=== PATIENT | female | born 1955 | race Two or more races ===

== ENCOUNTER 2018-03-30 20:55 | Emergency (ER) | payer OTHER ==
[2018-03-30 21:01] VITALS: BMI 26.9
--- NOTE | 2018-03-30 21:09 | PDOC ---
Attending Attestation - HPI HPI: 03/30/18 23:02 The patient is a 62 year old female, with a significant past medical history of arthritis, hypothyroidism, headaches, and diverticulitis, who presents to the emergency department s/p 10 minute episode of non-radiating chest pain with associated dizziness and nausea after taking Zolmitriptan which has since resolved. She denies recent dysuria, frequency, urgency or hematuria. Allergies: NKDA Primary Care Physician: Dr. Keating - Physicial Exam PE: 03/30/18 23:02 GENERAL: Awake, alert, and fully oriented, in no acute distress HEAD: No signs of trauma EYES: PERRLA, EOMI, sclera anicteric, conjunctiva clear ENT: Auricles normal inspection, hearing grossly normal, nares patent, oropharynx clear without exudates. Moist mucosa NECK: Normal ROM, supple, no lymphadenopathy, JVD, or masses LUNGS: Breath sounds equal, clear to auscultation bilaterally. No wheezes, and no crackles HEART: Regular rate and rhythm, normal S1 and S2, no murmurs, rubs or gallops ABDOMEN: Soft, nontender, normoactive bowel sounds. No guarding, no rebound. No masses EXTREMITIES: Normal range of motion, no edema. No clubbing or cyanosis. No cords, erythema, or tenderness NEUROLOGICAL: Cranial nerves II through XII grossly intact. Normal speech, normal gait SKIN: Warm, Dry, normal turgor, no rashes or lesions noted. <Cj Franklin - Last Filed: 03/30/18 23:01> - Resident Resident Name: Inessa Mathew - ED Attending Attestation I have performed the following: I have examined & evaluated the patient, The case was reviewed & discussed with the resident, I agree w/resident's findings & plan - Medical Decision Making 03/31/18 00:20 Pt has normal labs; she has normal EKG; she is refusing CXR at this time, because she will be getting one at her docotr's office. Her TSH is okay. Pt will be given a copy of her labs and she will be discharged. Impression: Atypical chest pain. <Zeina Coronel - Last Filed: 03/31/18 00:21> Attestations - Attestations 03/30/18 23:02 Documentation prepared by Cj Franklin, acting as medical imaging technician for Zeina Coronel MD. <Cj Franklin - Last Filed: 03/30/18 23:01>
--- NOTE | 2018-03-30 21:12 | PDOC ---
History of Present Illness - General Chief Complaint: Chest Pain Stated Complaint: CHEST PAIN Time Seen by Provider: 03/30/18 21:08 - History of Present Illness Initial Comments: 03/30/18 21:11 62 year old woman with a history of rheumatoid arthritis, hypothyroidism, temporal headaches and previous admission for diverticulitis who presents with 10 min episode of dizziness, nausea, and central non radiating chest tightness that occurred after taking zolmitriptan for the first time on an empty stomache. The patient notes that her daughter had influenza 2 weeks ago and she has been feeling somewhat weak for the past week. She denies any current chest pain, nausea, dizziness, shortness of breath, abdominal pain, vomiting, diarrhea , constipation, dysuria, hematuria. She denies any diaphoresis at time of the episode, denies recent travel, denies loss of consciousness. The patient has no other complaints at bedside. Past History - Past Medical History Allergies/Adverse Reactions: Allergies Allergy/AdvReac Type Severity Reaction Status Date / Time No Known Allergies Allergy Verified 05/11/17 21:42 Home Medications: Ambulatory Orders Levothyroxine [Synthroid -] 88 mcg PO DAILY 05/11/17 COPD: No GI Disorders: Yes (diverticulitis) Thyroid Disease: Yes (hypo) - Surgical History Abdominal Surgery: No (colon resection) GI Surgery: Yes (DIVERTICULITIS) - Immunization History Immunization Up to Date: Yes - Suicide/Smoking/Psychosocial Hx Smoking History: Never smoked Have you smoked in the past 12 months: No Number of Cigarettes Smoked Daily: 0 Cigars Per Day: 0 Information on smoking cessation initiated: No Hx Alcohol Use: No Drug/Substance Use Hx: No Review of Systems - Review of Systems Able to Perform ROS?: Yes Is the patient limited E[place] proficient: No Constitutional: No: Chills, Diaphoresis, Fever *Physical Exam - Vital Signs Last Vital Signs Temp Pulse Resp BP Pulse Ox 97.3 F L 86 20 162/78 100 03/30/18 20:59 03/30/18 20:59 03/30/18 20:59 03/30/18 20:59 03/30/18 20:59 - Physical Exam Comments: 03/30/18 21:30 GENERAL: Awake, alert, and fully oriented, in no acute distress HEAD: No signs of trauma, normocephalic, atraumatic EYES: PERRLA, EOMI, sclera anicteric, conjunctiva clear ENT: oropharynx clear without exudates. Moist mucosa NECK: Normal ROM, supple LUNGS: No distress, speaks full sentences, clear to auscultation bilaterally HEART: Regular rate and rhythm, normal S1 and S2, no murmurs, rubs or gallops, peripheral pulses normal and equal bilaterally. ABDOMEN: Soft, nontender, normoactive bowel sounds. No guarding, no rebound. No masses EXTREMITIES : Normal inspection, Normal range of motion, no edema. No clubbing or cyanosis. NEUROLOGICAL: Cranial nerves II through XII grossly intact. Normal speech, no focal sensorimotor deficits SKIN: Warm, Dry, normal turgor, no rashes or lesions noted Moderate Sedation - Procedure Monitoring Vital Signs: Procedure Monitoring Vital Signs Temperature 97.3 F L 03/30/18 20:59 Pulse Rate 86 03/30/18 20:59 Respiratory Rate 20 03/30/18 20:59 Blood Pressure 162/78 03/30/18 20:59 O2 Sat by Pulse Oximetry (%) 100 03/30/18 20:59 ED Treatment Course - LABORATORY CBC & Chemistry Diagram: 03/30/18 22:47 03/30/18 23:25 Medical Decision Making - Medical Decision Making 03/30/18 21:29 62 year old woman with a history of rheumatoid arthritis, hypothyroidism, headaches and previous admission for diverticulitis who presents with 10 min episode of dizziness, nausea, and central non radiating chest tightness that occurred after taking zolmitriptan on an empty stomach. The patient notes that her daughter had influenza 2 weeks ago and she has been feeling somewhat weak for the past week. She denies any current chest pain, nausea, dizziness, shortness of breath, abdominal pain, vomiting, diarrhea, constipation, dysuria, hematuria. ED Course: r/o acs vs arrythmia likely patient with new medication reaction patient's history inconsistent with ACS cbc, cmp, t ekg 03/30/18 22:34 EKG w/o concerning *DC/Admit/Observation/Transfer Diagnosis at time of Disposition: Atypical chest pain - Discharge Dispostion Disposition: HOME Condition at time of disposition: Stable Decision to Admit order: No - Referrals Referrals: Chino Keating [Primary Care Provider] - - Patient Instructions Printed Discharge Instructions: DI for Atypical Chest Pain Additional Instructions: You were seen in the ED for complaints of a short episode of chest pain and dizziness. In the ED you were evaluated with labwork, but did not desire imaging at this time. Your results were unremarkable aside from a slightly elevated TSH thyroid level. There does not appear to be an acute need for immediate hospitalization. You are advised to follow up with your Primary Care Physician within 1 week. Please refrain from taking your Zolmitriptan until you can be seen by your Primary Care Physician. Return to the ED immediately if you experience worsening chest pain, sweating, nausea, shortness of breath, loss of consciousness or palpitations and lightheadedness. - Post Discharge Activity
[2018-03-30] MEDS ORDERED: SODIUM CHLORIDE 1,000 ML IV SCH (21:30)
[2018-03-30 23:03] LABS: BASO % 1.3 % (0-2.0); EOS % 4.5 % (0-4.5); HEMATOCRIT 39.1 % (32.4-45.2); HEMOGLOBIN 13.7 GM/dL (10.7-15.3); LYMPH % 30.4 % (8-40); MCHC 35.1 g/dl (32.0-36.0); MEAN CELL VOLUME 93.8 fl (80-96); NEUT % 55.8 % (42.8-82.8); PLATELET COUNT 197 K/MM3 (134-434); RBC 4.17 M/mm3 (3.60-5.2); RDW 14.3 % (11.6-15.6); WHITE BLOOD COUNT 6.1 K/mm3 (4.0-10.0)
[2018-03-31 00:03] LABS: ALBUMIN 4.2 g/dl (3.4-5.0); ALK PHOS 122 U/L (45-117); ANION GAP 7 MMOL/L (8-16); BILIRUBIN,TOTAL 0.4 mg/dL (0.2-1); BLOOD UREA NITROGEN 11 mg/dL (7-18); CHLORIDE 106 mmol/L (98-107); CO2 28 mmol/L (21-32); CREATININE 0.9 mg/dL (0.55-1.3); GLUCOSE,RANDOM 126 mg/dL (74-106); POTASSIUM 3.8 mmol/L (3.5-5.1); SGOT/AST 26 U/L (15-37); SGPT/ALT 42 U/L (13-61); SODIUM 141 mmol/L (136-145); TOT PROT 7.8 g/dl (6.4-8.2)
[2018-03-31 00:56] VITALS: BP 122/76; PULSE 82; TEMP 97.9
--- NOTE | 2018-03-31 15:38 | EKG ---
Test Reason : Blood Pressure : / mmHG Vent. Rate : 089 BPM Atrial Rate : 089 BPM P-R Int : 164 ms QRS Dur : 086 ms QT Int : 362 ms P-R-T Axes : 069 029 038 degrees QTc Int : 440 ms NORMAL SINUS RHYTHM POSSIBLE LEFT ATRIAL ENLARGEMENT BORDERLINE ECG WHEN COMPARED WITH ECG OF 11-MAY-2017 21:52, PREVIOUS ECG HAS UNDETERMINED RHYTHM, NEEDS REVIEW Confirmed by SHAHAB MORENO MD ([id number]) on 03/31/2018 3:37:53 PM Referred By: Confirmed By:SHAHAB MORENO MD
== END 2018-03-31 00:55 | disposition home or self-care (01) ==
LOC: JER 20:55
DX: R07.89 Other chest pain (principal); E03.9 Hypothyroidism, unspecified; M06.9 Rheumatoid arthritis, unspecified; K57.92 Diverticulitis of intestine, part unspecified, without perforation or abscess without bleeding; R51 Headache
CPT/HCPCS: 36415; 80053; 84443; 85025; 87804; 93005; 93010; 99282-25

== ENCOUNTER 2022-09-25 21:01 | Observation (INO) | payer OTHER, MEDICARE ==
[2022-09-25 21:13] VITALS: BMI 24.0
[2022-09-25] MEDS ORDERED: SODIUM CHLORIDE IV ONE (23:03)
[2022-09-25] MEDS ORDERED: CEFTRIAXONE 1 GM in DEXTROSE 5%-WATER - 100 ML IVPB ONE (23:23)
[2022-09-25] MEDS ORDERED: ACETAMINOPHEN 1000 MG/100 ML BAG IVPB ONE (23:24)
[2022-09-25] MEDS ORDERED: ACETAMINOPHEN INJECTION 100 ML IVPB ONE (23:36)
[2022-09-25] MEDS ORDERED: CEFTRIAXONE 1 GM/50 ML BAG ONE (23:36)
[2022-09-25 23:45] LABS: BASO % 0.4 % (0-2.0); EOS % 1.6 % (0-4.5); HEMATOCRIT 37.1 % (32.4-45.2); HEMOGLOBIN 12.7 GM/dL (10.7-15.3); LYMPH % 3.5 % (8-40); MCH 31.3 pg (25.7-33.7); MCHC 34.3 g/dl (32.0-36.0); MEAN CELL VOLUME 91.2 fl (80-96); MEAN PLT VOLUME 9.3 fl (7.5-11.1); NEUT % 90.5 % (42.8-82.8); PLATELET COUNT 175 10^3/uL (134-434); RBC 4.07 M/mm3 (3.60-5.2); RDW 14.1 % (11.6-15.6); WHITE BLOOD COUNT 10.4 K/mm3 (4.0-10.0)
[2022-09-25 23:48] LABS: EPI CELLS 13 /uL (0-25.1); HYALINE CASTS 0 /uL (0-3.1); URINE APPEARANCE CLEAR; URINE BACTERIA 24 /uL (0-1359); URINE BILIRUBIN NEGATIVE (NEGATIVE); URINE COLOR YELLOW; URINE GLUCOSE (UA) NEGATIVE (NEGATIVE); URINE KETONE NEGATIVE (NEGATIVE); URINE LEUK ESTERASE TRACE (NEGATIVE); URINE NITRITE NEGATIVE (NEGATIVE); URINE PROTEIN NEGATIVE (NEGATIVE); URINE RBC 7 /uL (0-23.9); URINE UROBILINOGEN 0.2 mg/dL (0.2-1.0); URINE WBC 13 /uL (0-25.8)
[2022-09-25 23:58] LABS: INR 1.17 (0.83-1.09); PROTHROMBIN TIME (PATIENT) 13.6 SEC (9.7-13.0)
[2022-09-26] LABS: ACTIVATED PTT 32.3 SECONDS (25.2-36.5)
[2022-09-26 00:05] LABS: CHLORIDE 101 mmol/L (98-107); POTASSIUM 4.1 mmol/L (3.5-5.1); SODIUM 137 mmol/L (136-145)
[2022-09-26 00:07] LABS: CALCIUM 9.7 mg/dL (8.5-10.1)
[2022-09-26 00:08] LABS: ALBUMIN 4.1 g/dl (3.4-5.0); ANION GAP 9 MMOL/L (8-16); BLOOD UREA NITROGEN 14.8 mg/dL (7-18); CO2 28 mmol/L (21-32); GLUCOSE,RANDOM 110 mg/dL (74-106)
[2022-09-26 00:11] LABS: CREATININE 1.1 mg/dL (0.55-1.3); SGOT/AST 19 U/L (15-37); SGPT/ALT 28 U/L (13-61)
[2022-09-26 00:12] LABS: TOT PROT 7.7 g/dl (6.4-8.2)
[2022-09-26 00:14] LABS: ALK PHOS 95 U/L (45-117)
[2022-09-26 00:51] LABS: BILIRUBIN,TOTAL 0.9 mg/dL (0.2-1)
[2022-09-26 01:02] LABS: VENOUS BASE EXCESS -0.4 mmol/L (-2-2); VENOUS O2 SATURATION 80.4 % (70-80); VENOUS PCO2 33.2 mmHg (38-52); VENOUS PH 7.457 (7.310-7.410)
[2022-09-26] MEDS ORDERED: ACETAMINOPHEN 325 MG TABLET (FP) PO PRN (03:52)
[2022-09-26] MEDS: SODIUM CHLORIDE 1,000 ML IV SCH (06:03)
[2022-09-26 06:13] LABS: HEMATOCRIT 35.7 % (32.4-45.2); HEMOGLOBIN 12.1 GM/dL (10.7-15.3); MCH 31.7 pg (25.7-33.7); MCHC 33.8 g/dl (32.0-36.0); MEAN CELL VOLUME 93.8 fl (80-96); MEAN PLT VOLUME 9.7 fl (7.5-11.1); PLATELET COUNT 157 10^3/uL (134-434); RBC 3.81 M/mm3 (3.60-5.2); WHITE BLOOD COUNT 8.8 K/mm3 (4.0-10.0)
[2022-09-26 06:37] LABS: CALCIUM 8.4 mg/dL (8.5-10.1)
[2022-09-26 06:38] LABS: ALBUMIN 3.5 g/dl (3.4-5.0); BLOOD UREA NITROGEN 12.4 mg/dL (7-18)
[2022-09-26 06:41] LABS: CREATININE 0.9 mg/dL (0.55-1.3); PHOSPHOROUS 3.1 mg/dL (2.5-4.9); URIC ACID 3.9 mg/dL (2.6-7.2)
[2022-09-26 06:42] LABS: BILIRUBIN,TOTAL 0.6 mg/dL (0.2-1)
[2022-09-26 06:43] LABS: TOT PROT 6.5 g/dl (6.4-8.2)
[2022-09-26] MEDS ORDERED: ACETAMINOPHEN 325 MG TABLET (FP) ONE (06:46)
[2022-09-26] MEDS: CEFTRIAXONE 1 GM in DEXTROSE 5%-WATER - 50 ML IVPB SCH (10:44)
[2022-09-26] MEDS: ENOXAPARIN NA (PORCINE) 40 MG/0.4 ML DISP.SYRIN SQ SCH (10:44)
[2022-09-26] MEDS: LEVOTHYROXINE NA 88 MCG TABLET (FP) PO SCH (10:44)
[2022-09-26] MEDS: LOSARTAN 50MG/HCTZ 12.5MG 1 TAB PO SCH (13:30)
[2022-09-27] MEDS: SODIUM CHLORIDE 1,000 ML IV SCH (05:37)
[2022-09-27] MEDS: LEVOTHYROXINE NA 88 MCG TABLET (FP) PO SCH (06:02)
[2022-09-27] MEDS: CEFTRIAXONE 1 GM in DEXTROSE 5%-WATER - 50 ML IVPB SCH (09:42)
[2022-09-27] MEDS: ENOXAPARIN NA (PORCINE) 40 MG/0.4 ML DISP.SYRIN SQ SCH (09:43)
[2022-09-27] MEDS: LOSARTAN 50MG/HCTZ 12.5MG 1 TAB PO SCH (09:43)
[2022-09-27 11:20] LABS: HEMOGLOBIN 12.1 GM/dL (10.7-15.3); MCH 31.3 pg (25.7-33.7); MCHC 33.6 g/dl (32.0-36.0); MEAN PLT VOLUME 10.2 fl (7.5-11.1); PLATELET COUNT 168 10^3/uL (134-434); RBC 3.88 M/mm3 (3.60-5.2); WHITE BLOOD COUNT 5.6 K/mm3 (4.0-10.0)
[2022-09-27 14:41] VITALS: BP 115/64; PULSE 70; RESP 18; TEMP 97.9
== END 2022-09-27 16:07 | disposition home or self-care (01) ==
LOC: JER 21:01 → JERBED 09-26 02:40 → J5S 09-26 06:41 → JERBED 09-26 06:51 → J5S 09-26 07:01
PROVIDERS: ADMIT Internal Medicine
PROC: 3E03329 Introduction of Other Anti-infective into Peripheral Vein, Percutaneous Approach (ICD-10-PCS; principal; 2022-09-26)
PROC: 3E033NZ Introduction of Analgesics, Hypnotics, Sedatives into Peripheral Vein, Percutaneous Approach (ICD-10-PCS; 2022-09-26)
PROC: 3E0337Z Introduction of Electrolytic and Water Balance Substance into Peripheral Vein, Percutaneous Approach (ICD-10-PCS; 2022-09-26)
DX: A41.89 Other specified sepsis (principal); N12 Tubulo-interstitial nephritis, not specified as acute or chronic; E03.9 Hypothyroidism, unspecified; I10 Essential (primary) hypertension; K57.92 Diverticulitis of intestine, part unspecified, without perforation or abscess without bleeding; M19.90 Unspecified osteoarthritis, unspecified site; Z87.891 Personal history of nicotine dependence
CPT/HCPCS: 0241U-QW; 36415; 71045-TC-FY; 74176-TC; 80053; 81003; 82553; 82803; 83605; 83735; 84100; 84550; 85025; 85027; 85610; 85730; 86850; 86900; 86901; 87040; 87086; 93005; 93010; 96361; 96365; 96366; 96375; 99285-25; G0378

== ENCOUNTER 2022-10-04 17:14 | Inpatient (IN) | payer OTHER, MEDICARE ==
[2022-10-04] MEDS ORDERED: SODIUM CHLORIDE 1,823 ML IV ONE (17:52)
[2022-10-04 19:02] LABS: BASO % 0.2 % (0-2.0); EOS % 0.8 % (0-4.5); HEMATOCRIT 37.2 % (32.4-45.2); HEMOGLOBIN 12.7 GM/dL (10.7-15.3); LYMPH % 1.6 % (8-40); MCH 31.1 pg (25.7-33.7); MCHC 34.1 g/dl (32.0-36.0); MEAN CELL VOLUME 91.2 fl (80-96); MEAN PLT VOLUME 9.6 fl (7.5-11.1); MONO % 2.3 % (3.8-10.2); NEUT % 95.1 % (42.8-82.8); PLATELET COUNT 222 10^3/uL (134-434); RBC 4.08 M/mm3 (3.60-5.2); RDW 14.2 % (11.6-15.6); WHITE BLOOD COUNT 27.8 K/mm3 (4.0-10.0)
[2022-10-04 19:12] LABS: INR 1.13 (0.83-1.09); PROTHROMBIN TIME (PATIENT) 13.1 SEC (9.7-13.0)
[2022-10-04 19:29] LABS: ANISOCYTOSIS 1+; MACROCYTOSIS 0
[2022-10-04 19:32] LABS: CHLORIDE 98 mmol/L (98-107); POTASSIUM 4.3 mmol/L (3.5-5.1); SODIUM 133 mmol/L (136-145)
[2022-10-04 19:34] LABS: LACTIC ACID 2.2 mmol/L (0.4-2.0)
[2022-10-04 19:36] LABS: ANION GAP 8 MMOL/L (8-16); BLOOD UREA NITROGEN 19.9 mg/dL (7-18); CO2 27 mmol/L (21-32); GLUCOSE,RANDOM 112 mg/dL (74-106)
[2022-10-04 19:39] LABS: CREATININE 1.1 mg/dL (0.55-1.3); SGOT/AST 21 U/L (15-37); SGPT/ALT 27 U/L (13-61)
[2022-10-04 19:40] LABS: BILIRUBIN,TOTAL 1.1 mg/dL (0.2-1)
[2022-10-04 19:41] LABS: ALK PHOS 88 U/L (45-117); TOT PROT 7.3 g/dl (6.4-8.2)
[2022-10-04] MEDS ORDERED: PIPERACILLIN/TAZOB 4.5 GM 4.5 GM in DEXTROSE 5%-WATER 100 ML IVPB ONE (19:41)
[2022-10-04] MEDS ORDERED: VANCOMYCIN 1,000 MG in DEXTROSE 5%-WATER - 250 ML IVPB ONE (19:41)
[2022-10-04 19:45] LABS: EPI CELLS 28 /uL (0-25.1); HYALINE CASTS 0 /uL (0-3.1); PH,URINE 5.5 (5.0-8.0); URINE APPEARANCE CLEAR; URINE BACTERIA 40 /uL (0-1359); URINE BILIRUBIN NEGATIVE (NEGATIVE); URINE COLOR YELLOW; URINE GLUCOSE (UA) NEGATIVE (NEGATIVE); URINE KETONE NEGATIVE (NEGATIVE); URINE LEUK ESTERASE 2+ (NEGATIVE); URINE NITRITE NEGATIVE (NEGATIVE); URINE PROTEIN NEGATIVE (NEGATIVE); URINE RBC 16 /uL (0-23.9); URINE UROBILINOGEN 0.2 mg/dL (0.2-1.0); URINE WBC 31 /uL (0-25.8)
[2022-10-04] MEDS ORDERED: PIPERACILLIN/TAZOB 4.5 GM 4.5 GM/100 ML BAG IVPB ONE (19:46)
[2022-10-04 19:50] LABS: CALCIUM 9.7 mg/dL (8.5-10.1)
[2022-10-04] MEDS ORDERED: VANCOMYCIN/WATER FOR INJ (PEG) 1,000 MG/200 ML BAG IVPB ONE (19:58)
[2022-10-04 21:33] LABS: LACTIC ACID 2.4 mmol/L (0.4-2.0)
[2022-10-05] MEDS: SODIUM CHLORIDE 1,000 ML IV SCH (02:49)
[2022-10-05] MEDS ORDERED: PIPERACILLIN/TAZOB 3.375 GM 3.375 GM/50 ML BAG IVPB ONE ×2 (02:51→08:49)
[2022-10-05] MEDS: PIPERACILLIN/TAZOB 3.375 GM 3.375 GM in DEXTROSE 5%-WATER - 50 ML IVPB SCH ×4 (02:59→21:28)
[2022-10-05] MEDS ORDERED: LEVOTHYROXINE NA 88 MCG TABLET (FP) ONE (06:38)
[2022-10-05] MEDS: LEVOTHYROXINE NA 88 MCG TABLET (FP) PO SCH (06:41)
[2022-10-05 07:06] LABS: HEMOGLOBIN 11.1 GM/dL (10.7-15.3); MCH 31.4 pg (25.7-33.7); MCHC 33.5 g/dl (32.0-36.0); MEAN CELL VOLUME 93.7 fl (80-96); MEAN PLT VOLUME 9.7 fl (7.5-11.1); PLATELET COUNT 203 10^3/uL (134-434); RBC 3.52 M/mm3 (3.60-5.2); RDW 14.4 % (11.6-15.6)
[2022-10-05 07:18] LABS: POTASSIUM 4.1 mmol/L (3.5-5.1)
[2022-10-05 07:20] LABS: ALBUMIN 3.3 g/dl (3.4-5.0); BLOOD UREA NITROGEN 14.1 mg/dL (7-18); CALCIUM 8.7 mg/dL (8.5-10.1); MAGNESIUM 2.1 mg/dL (1.8-2.4)
[2022-10-05 07:23] LABS: PHOSPHOROUS 2.8 mg/dL (2.5-4.9)
[2022-10-05 07:25] LABS: BILIRUBIN,TOTAL 1.1 mg/dL (0.2-1); TOT PROT 6.3 g/dl (6.4-8.2)
[2022-10-05] MEDS ORDERED: ENOXAPARIN NA (PORCINE) 40 MG/0.4 ML DISP.SYRIN SQ ONE (08:48)
[2022-10-05] MEDS: ENOXAPARIN NA (PORCINE) 40 MG/0.4 ML DISP.SYRIN SQ SCH (09:16)
[2022-10-05] MEDS ORDERED: CEFTRIAXONE 1 GM in DEXTROSE 5%-WATER - 50 ML IVPB SCH (10:00)
[2022-10-05 10:41] LABS: ERYTHROCYTE SEDIMENTATION RATE 53 mm/hr (0-30)
[2022-10-05 13:40] LABS: HIV INTERPRETATION NEGATIVE (NEGATIVE)
[2022-10-05 14:57] VITALS: BMI 24.1
[2022-10-06] MEDS: PIPERACILLIN/TAZOB 3.375 GM 3.375 GM in DEXTROSE 5%-WATER - 50 ML IVPB SCH ×4 (02:10→21:58)
[2022-10-06] MEDS: SODIUM CHLORIDE 1,000 ML IV SCH (02:11)
[2022-10-06 07:08] LABS: HEMATOCRIT 34.1 % (32.4-45.2); HEMOGLOBIN 11.4 GM/dL (10.7-15.3); MCH 31.2 pg (25.7-33.7); MCHC 33.4 g/dl (32.0-36.0); MEAN CELL VOLUME 93.3 fl (80-96); MEAN PLT VOLUME 10.2 fl (7.5-11.1); PLATELET COUNT 192 10^3/uL (134-434); RBC 3.66 M/mm3 (3.60-5.2); RDW 14.4 % (11.6-15.6)
[2022-10-06 07:11] LABS: WHITE BLOOD COUNT 10.8 K/mm3 (4.0-10.0)
[2022-10-06] MEDS: LEVOTHYROXINE NA 88 MCG TABLET (FP) PO SCH (07:11)
[2022-10-06 07:24] LABS: POTASSIUM 3.9 mmol/L (3.5-5.1)
[2022-10-06 07:26] LABS: CALCIUM 8.7 mg/dL (8.5-10.1)
[2022-10-06 07:27] LABS: ALBUMIN 3.4 g/dl (3.4-5.0)
[2022-10-06 07:30] LABS: CREATININE 1.2 mg/dL (0.55-1.3)
[2022-10-06 07:32] LABS: BILIRUBIN,TOTAL 0.8 mg/dL (0.2-1); TOT PROT 6.6 g/dl (6.4-8.2)
[2022-10-06 09:08] LABS: ANISOCYTOSIS 1+; MACROCYTOSIS 1+
[2022-10-06] MEDS: ENOXAPARIN NA (PORCINE) 40 MG/0.4 ML DISP.SYRIN SQ SCH ×2 (09:35→10:35)
[2022-10-06 22:49] VITALS: RESP 18
[2022-10-07] MEDS: PIPERACILLIN/TAZOB 3.375 GM 3.375 GM in DEXTROSE 5%-WATER - 50 ML IVPB SCH ×2 (02:58→09:30)
[2022-10-07] MEDS ORDERED: LOSARTAN 50MG/HCTZ 12.5MG 1 TAB PO PRN (08:09)
[2022-10-07] MEDS: LEVOTHYROXINE NA 88 MCG TABLET (FP) PO SCH (09:30)
[2022-10-07] MEDS: ENOXAPARIN NA (PORCINE) 40 MG/0.4 ML DISP.SYRIN SQ SCH (09:31)
[2022-10-07 09:38] VITALS: BP 146/77; PULSE 69; TEMP 98
[2022-10-07] MEDS ORDERED: LOSARTAN 50MG/HCTZ 12.5MG 1 TAB PO SCH (10:00)
[2022-10-07] MEDS ORDERED: LACTOBACILLUS ACIDOPHILUS 1 TABLET PO SCH (10:00)
[2022-10-07 10:15] LABS: HEMATOCRIT 32.2 % (32.4-45.2); HEMOGLOBIN 10.7 GM/dL (10.7-15.3); MCHC 33.1 g/dl (32.0-36.0); MEAN CELL VOLUME 93.5 fl (80-96); MEAN PLT VOLUME 9.7 fl (7.5-11.1); PLATELET COUNT 204 10^3/uL (134-434); RBC 3.44 M/mm3 (3.60-5.2); RDW 14.1 % (11.6-15.6); WHITE BLOOD COUNT 6.2 K/mm3 (4.0-10.0)
[2022-10-07] MEDS ORDERED: CIPROFLOXACIN 500 MG TABLET (RESTRICTED TO ID) PO ONE (11:15)
[2022-10-07 11:35] LABS: BLOOD UREA NITROGEN 11.5 mg/dL (7-18); CALCIUM 8.8 mg/dL (8.5-10.1); CREATININE 1.1 mg/dL (0.55-1.3); POTASSIUM 3.9 mmol/L (3.5-5.1)
== END 2022-10-07 11:55 | disposition home or self-care (01) | DRG 872 ==
LOC: JER 17:14 → JERBED 19:41 → J7W 10-05 14:15
PROVIDERS: ADMIT Internal Medicine; ATTEND Internal Medicine
DX: A41.9 Sepsis, unspecified organism (principal); N39.0 Urinary tract infection, site not specified; I10 Essential (primary) hypertension; E78.5 Hyperlipidemia, unspecified; E03.9 Hypothyroidism, unspecified; R39.9 Unspecified symptoms and signs involving the genitourinary system; D72.829 Elevated white blood cell count, unspecified; Z87.19 Personal history of other diseases of the digestive system
CPT/HCPCS: 0241U-QW; 36415; 71045-TC-FY; 71260-TC; 74177-TC; 80048; 80053; 81003; 82550; 82553; 83605; 83735; 84100; 84484; 85025; 85027; 85610; 85651; 85730; 86140; 86480; 86618; 86850; 86900; 86901; 87040; 87086; 87389; 87529; 93005; 93010; 99285-25; Q9967

== ENCOUNTER 2022-10-24 07:39 | Emergency (ER) | payer OTHER, MEDICARE ==
[2022-10-24 07:44] VITALS: BMI 23.3
[2022-10-24 08:17] VITALS: RESP 16
[2022-10-24] MEDS ORDERED: ACETAMINOPHEN 1000 MG/100 ML BAG IVPB ONE (08:49)
[2022-10-24 09:00] LABS: HEMATOCRIT 35.9 % (32.4-45.2); HEMOGLOBIN 11.9 GM/dL (10.7-15.3); MCHC 33.1 g/dl (32.0-36.0); MEAN CELL VOLUME 93.9 fl (80-96); MEAN PLT VOLUME 10.1 fl (7.5-11.1); PLATELET COUNT 169 10^3/uL (134-434); RBC 3.82 M/mm3 (3.60-5.2)
[2022-10-24 09:27] LABS: ANISOCYTOSIS 1+; MACROCYTOSIS 0
[2022-10-24 09:43] LABS: POTASSIUM 3.6 mmol/L (3.5-5.1)
[2022-10-24 09:46] LABS: ALBUMIN 3.7 g/dl (3.4-5.0); BLOOD UREA NITROGEN 18.3 mg/dL (7-18); CALCIUM 8.9 mg/dL (8.5-10.1)
[2022-10-24] MEDS ORDERED: ACETAMINOPHEN INJECTION 100 ML IVPB ONE (09:46)
[2022-10-24 09:49] LABS: CREATININE 1.1 mg/dL (0.55-1.3)
[2022-10-24 09:51] LABS: BILIRUBIN,TOTAL 1.3 mg/dL (0.2-1); TOT PROT 6.9 g/dl (6.4-8.2)
[2022-10-24 10:38] LABS: EPI CELLS >36 /uL (0-25.1); HYALINE CASTS 1 /uL (0-3.1); PH,URINE 5.5 (5.0-8.0); URINE APPEARANCE CLEAR; URINE BACTERIA 1262 /uL (0-1359); URINE BILIRUBIN NEGATIVE (NEGATIVE); URINE COLOR YELLOW; URINE GLUCOSE (UA) NEGATIVE (NEGATIVE); URINE KETONE NEGATIVE (NEGATIVE); URINE LEUK ESTERASE 1+ (NEGATIVE); URINE NITRITE NEGATIVE (NEGATIVE); URINE PROTEIN NEGATIVE (NEGATIVE); URINE RBC 11 /uL (0-23.9); URINE UROBILINOGEN 0.2 mg/dL (0.2-1.0); URINE WBC 61 /uL (0-25.8)
[2022-10-24 11:58] VITALS: BP 103/56; PULSE 94; TEMP 98.2
== END 2022-10-24 12:01 | disposition home or self-care (01) ==
LOC: JER 07:39
PROC: 3E033NZ Introduction of Analgesics, Hypnotics, Sedatives into Peripheral Vein, Percutaneous Approach (ICD-10-PCS; principal; 2022-10-24)
DX: R50.9 Fever, unspecified (principal); R10.9 Unspecified abdominal pain; R07.89 Other chest pain; R35.0 Frequency of micturition; R11.0 Nausea; R06.00 Dyspnea, unspecified; Z20.822 Contact with and (suspected) exposure to COVID-19
CPT/HCPCS: 0241U-QW; 36415; 71046-TC-FY; 80053; 81003; 84439; 84443; 84484; 85025; 87086; 93005; 93010; 99285-25